=== PATIENT | female | born 1975 | race Hispanic/Latino ===

== ENCOUNTER 2018-06-15 12:19 | Outpatient (CLI) | payer OTHER ==
--- NOTE | 2018-06-15 14:36 | RAD ---
CERVICAL SPINE THREE VIEWS: History: Disability evaluation. Comparison: None. FINDINGS: On the open mouth projection, the tip of the odontoid process is obscured. The base of the odontoid p rocess is intact. Lateral masses of C1 and C2 articulate appropriately. On the AP projection, there is no malalignment. No significant degenerative change of the facets. There is an anterior fusion plate with transvertebral body screw at C5-6. No perihardware lucency. Di sc prosthesis at C5-6 is noted. Vertebral body height is maintained. No fracture. No significant loss of disc space height. Straighte luis of the normal cervical lordosis is presumed to be due to patient position. There is no preverteb ral soft tissue swelling. IMPRESSION: 1. Uncomplicated cervical fusion of C5-6. POS: [facility]
== END 2018-06-15 12:20 | disposition home or self-care (01) ==
LOC: NAV RAD 12:19
PROVIDERS: ATTEND Family Medicine
DX: Z02.71 Encounter for disability determination (principal); M50.10 Cervical disc disorder with radiculopathy, unspecified cervical region; Z98.1 Arthrodesis status
CPT/HCPCS: 72040